=== PATIENT | female | born 1955 | race Two or more races ===

== ENCOUNTER 2018-12-18 19:14 | Emergency (ER) | payer OTHER ==
[~2018-12-18] VITALS: Ht 162.6 cm; Wt 69.4 kg
[~2018-12-18 19:14] MED LIST: CYCLOBENZAPRINE10 MG ORAL; IBUPROFEN600 MG ORAL; NORCO 5-325 TA1 EACH ORAL
[2018-12-18] MEDS ORDERED: NKM (19:22)
[2018-12-18 19:30] VITALS: BP 184/93
--- NOTE | 2018-12-18 19:35 | NUR ---
ER Nurse Note: Pt came from home c/o right leg pain and right arm pain. Pt walked into the ER with steady gait. Pt stated she was walking 5/5 and felt a "snap" around 1400. Pt able push and pull with foot. Pt stated right arm pain is not related to the pain in the leg. Pt has full range of motion in all extremities. ERMD at pt side; will continue to montior.
[2018-12-18] MEDS ORDERED: Isovue-370 150ml vial INJ PRN (19:45)
[2018-12-18 20:12] LABS: BASOPHILS % (AUTO) 1.5 % (0.0-2.0); EOSINOPHILS % (AUTO) 2.4 % (0.0-3.0); HEMATOCRIT 41.6 % (37.0-47.0); HEMOGLOBIN 14.2 G/DL (12.0-16.0); LYMPHOCYTES % (AUTO) 46.8 % (20.0-45.0); MEAN CORPUSCULAR VOLUME 88 FL (80-99); MONOCYTES % (AUTO) 4.9 % (1.0-10.0); NEUTROPHILS % (AUTO) 44.3 % (45.0-75.0); PLATELET COUNT 260 K/UL (150-450); RED BLOOD COUNT 4.75 M/UL (4.20-5.40); RED CELL DISTRIBUTION WIDTH 12.8 % (11.6-14.8); WHITE BLOOD COUNT 8.4 K/UL (4.8-10.8)
--- NOTE | 2018-12-18 20:45 | Emergency Room Report ---
History of Present Illness General Chief Complaint: Lower Extremity Injury Source: Patient Present Illness HPI Patient presents with initial complaint of right knee pain however talking further patient complains of right shoulder pain upper chest pain Intermittently feeling short of breath denies any vomiting denies any diarrhea patient has had a recent travel to [facility] She has a mild cough Denies any dysuria frequency Pain in the right shoulder is worse with movement she question possible ligamental pathology Denies any other fall or trauma And the pain to the right knee is worse with bearing weight Allergies: Coded Allergies: No Known Allergies (Unverified , 06/19/15) Patient History Past Medical History: see triage record Pertinent Family History: none Reviewed Nursing Documentation: PMH: Agreed; PSxH: Agreed Nursing Documentation-PMH Past Medical History: No History, Except For Hx Hypertension: Yes Review of Systems All Other Systems: negative except mentioned in HPI Physical Exam Vital Signs Date Time Temp Pulse Resp B/P (MAP) Pulse Ox O2 Delivery O2 Flow Rate FiO2 12/18/18 19:15 98.1 89 14 94 Room Air Sp02 EP Interpretation: reviewed, normal General Appearance: well appearing, no apparent distress Head: normocephalic, atraumatic Eyes: bilateral eye PERRL, bilateral eye EOMI ENT: hearing grossly normal, normal pharynx, TMs + canals normal, uvula midline Neck: full range of motion, supple, no meningismus, no bony tend Respiratory: lungs clear, normal breath sounds, no rhonchi, no respiratory distress, no retraction, no accessory muscle use Cardiovascular #1: normal peripheral pulses, regular rate, rhythm, no edema, no gallop, no JVD, no murmur Gastrointestinal: normal bowel sounds, non tender, soft, no mass, no organomegaly, non-distended, no guarding, no hernia, no pulsatile mass, no rebound Genitourinary: no CVA tenderness Musculoskeletal: normal inspection Neurologic: oriented x3, responsive, laborer orchard III-XII nml as tested, motor strength/ tone normal, sensory intact Psychiatric: mood/affect normal Skin: normal color, no rash, warm/dry, palpation normal Lymphatic: normal inspection, no adenopathy Medical Decision Making Diagnostic Impression: Primary Impression: ACS (acute coronary syndrome) ER Course Patient is a fairly complex patient with multiple differential to consideration including but not limited to cardiac cardiopulmonary and vascular emergencies Patient blood work is appropriate CT imaging does not show any obvious pulmonary embolism Given the patient's right upper shoulder and chest complaint consideration for ACS is made Patient's knee does not reveal any effusion or swelling does not show any laxity on exam and imaging has not been done further inpatient ultrasound versus MRI can be considered Otherwise patient further stabilized and requested by insurance for transfer Labs Test 12/18/18 19:39 12/18/18 19:45 Arterial Blood pH 7.422 (7.350-7.450) Arterial Blood Partial Pressure CO2 37.1 mmHg (35.0-45.0) Arterial Blood Partial Pressure O2 68.7 mmHg (75.0-100.0) Arterial Blood HCO3 23.6 mmol/L (22.0-26.0) Arterial Blood Oxygen Saturation 93.6 % (95-100) Arterial Blood Base Excess -0.4 (-2-2) Nehemiah Test Positive White Blood Count 8.4 K/UL (4.8-10.8) Red Blood Count 4.75 M/UL (4.20-5.40) Hemoglobin 14.2 G/DL (12.0-16.0) Hematocrit 41.6 % (37.0-47.0) Mean Corpuscular Volume 88 FL (80-99) Mean Corpuscular Hemoglobin 29.9 PG (27.0-31.0) Mean Corpuscular Hemoglobin Concent 34.1 G/DL (32.0-36.0) Red Cell Distribution Width 12.8 % (11.6-14.8) Platelet Count 260 K/UL (150-450) Mean Platelet Volume 5.9 FL (6.5-10.1) Neutrophils (%) (Auto) 44.3 % (45.0-75.0) Lymphocytes (%) (Auto) 46.8 % (20.0-45.0) Monocytes (%) (Auto) 4.9 % (1.0-10.0) Eosinophils (%) (Auto) 2.4 % (0.0-3.0) Basophils (%) (Auto) 1.5 % (0.0-2.0) Sodium Level 139 MMOL/L (136-145) Potassium Level 3.8 MMOL/L (3.5-5.1) Chloride Level 104 MMOL/L (98-107) Carbon Dioxide Level 27 MMOL/L (21-32) Anion Gap 8 mmol/L (5-15) Blood Urea Nitrogen 16 mg/dL (7-18) Creatinine 0.8 MG/DL (0.55-1.30) Estimat Glomerular Filtration Rate > 60 mL/min (>60) Glucose Level 233 MG/DL (74-106) Calcium Level 9.0 MG/DL (8.5-10.1) Total Bilirubin 0.2 MG/DL (0.2-1.0) Aspartate Amino Transf (AST/SGOT) 34 U/L (15-37) Alanine Aminotransferase (ALT/SGPT) 88 U/L (12-78) Alkaline Phosphatase 114 U/L (46-116) Total Creatine Kinase 64 U/L (26-308) Creatine Kinase MB < 0.5 NG/ML (0.0-3.6) Creatine Kinase MB Relative Index 0.7 Troponin I 0.000 ng/mL (0.000-0.056) Pro-B-Type Natriuretic Peptide 33 pg/mL (0-125) Total Protein 7.9 G/DL (6.4-8.2) Albumin 3.7 G/DL (3.4-5.0) Globulin 4.2 g/dL Albumin/Globulin Ratio 0.9 (1.0-2.7) Lipase 147 U/L (73-393) EKG Diagnostic Results Rate: normal Rhythm: NSR ST Segments: other - Nonspecific ST T-wave changes Rhythm Strip Diag. Results EP Interpretation: yes Rate: 70 Rhythm: NSR, no PVC's, no ectopy Chest X-Ray Diagnostic Results Chest X-Ray Diagnostic Results : Chest X-Ray Ordered: Yes # of Views/Limited/Complete: 1 View Indication: Chest Pain EP Interpretation: Yes Interpretation: no consolidation, no effusion, no pneumothorax Impression: No acute disease Electronically Signed by: Rich Lomas DO CT/MRI/US Diagnostic Results CT/MRI/US Diagnostic Results : Impression cT chest no obvious PE Last Vital Signs Date Time Temp Pulse Resp B/P (MAP) Pulse Ox O2 Delivery O2 Flow Rate FiO2 12/18/18 19:15 98.1 89 14 94 Room Air Status: improved Disposition: XFER [facility] Condition: Improved Rich Lomas DO December 18, 2018 20:45
[2018-12-18 21:02] LABS: ANION GAP 8 mmol/L (5-15); BLOOD UREA NITROGEN 16 mg/dL (7-18); CARBON DIOXIDE 27 MMOL/L (21-32); CHLORIDE 104 MMOL/L (98-107); CREATININE 0.8 MG/DL (0.55-1.30); POTASSIUM 3.8 MMOL/L (3.5-5.1); SODIUM 139 MMOL/L (136-145)
[2018-12-18 21:16] LABS: ALANINE AMINOTRANSFERASE 88 U/L (12-78); ALBUMIN 3.7 G/DL (3.4-5.0); ALBUMIN/GLOBULIN RATIO 0.9 (1.0-2.7); ALKALINE PHOSPHATASE 114 U/L (46-116); ASPARTATE AMINO TRANSFERASE 34 U/L (15-37); BILIRUBIN,TOTAL 0.2 MG/DL (0.2-1.0); CKMB < 0.5 NG/ML (0.0-3.6); CREATINE KINASE 64 U/L (26-308)
[2018-12-18 21:20] VITALS: BP 226/103
[2018-12-18] MEDS ORDERED: Nitroglycerin 2% oint pkt TOPIC ONE ×2 (21:36→22:00)
--- NOTE | 2018-12-18 21:43 | NUR ---
ER Nurse Note: Pt back from radiology. All orders completed per ERMD orders. Pt BP at 226/103; ERMD aware. Verbal order for nitro patch 1 inch given. BP at 206/106. Will notify ERMD. Will continue to montior.
[2018-12-18 23:00] VITALS: BP 167/90
--- NOTE | 2018-12-18 23:00 | NUR ---
ER Nurse Note: Nitro patch applied; will continue to montior BP. All orders completed per ERMD orders. Report given to NENA Arellano at [facility] for continuity of care. Pt stable for transport. Pt and family left with all belongings.
--- NOTE | 2018-12-19 09:28 | Diagnostic Imaging Report ---
Indication: Chest pain Technique: Continuous helical transaxial imaging of the chest was obtained from the thoracic inlet to the upper abdomen during rapid intravenous contrast administration. Arterial phase of enhancement obtained. Coronal 2-D reformats were also obtained and maximum intensity projection images in multiple planes. Study obtained in a Siemens sensation [address] Automatic Exposure Control was utilized. Total Dose length Product (DLP): 664.[address] Dose Index Volume (CTDIvol): 23.9 mGy Comparison: None Findings: The pulmonary artery is well opacified and shows no filling defects. There is no adenopathy, pleural or pericardial effusions are identified. There is no aortic dissection or aneurysm identified within the chest. There are calcifications in the mediastinum. Mild patchy groundglass opacities are noted within the lungs nonspecific. The heart is enlarged. There is a small hiatal hernia. There is a low-attenuation of the liver. Impression: No evidence of pulmonary embolus aortic dissection or aneurysm. Old granulomatous disease. Patchy groundglass pulmonary opacities, nonspecific. Hiatal hernia Fatty liver The CT scanner at [facility] is accredited by the [employer] and the scans are performed using dose optimization techniques as appropriate to a performed exam including Automatic Exposure control.
--- NOTE | 2018-12-19 11:10 | Cardiology Report ---
APPROVED REPORT EKG Measurement Heart [id number] Normal sinus rhythm Normal ECG
--- NOTE | 2018-12-19 11:16 | Diagnostic Imaging Report ---
Indication: Dyspnea Comparison: None A single view chest radiograph was obtained. Findings: Cardiomediastinal appearance is within normal limits for age. The lungs are clear. Pulmonary vascularity is appropriate. The diaphragmatic contour is smooth and costophrenic angles are sharp. No pleural effusions are identified. The bones are unremarkable. Impression: No acute findings
== END 2018-12-18 23:00 | disposition short-term general hospital (02) ==
LOC: EMR 21:00
DX: I24.9 Acute ischemic heart disease, unspecified (principal); M25.561 Pain in right knee; M25.511 Pain in right shoulder; I10 Essential (primary) hypertension; R05 Cough; K76.0 Fatty (change of) liver, not elsewhere classified; K44.9 Diaphragmatic hernia without obstruction or gangrene
CPT/HCPCS: 36415; 36600; 71045; 71275; 80053; 82550; 82553; 82803; 83690; 83880; 84484; 85025; 87040; 93005; 99284; Q9967